=== PATIENT | female | born 1955 | race Asian ===

== ENCOUNTER 2018-08-20 08:26 | Emergency (ER) | payer MEDICARE, OTHER ==
[~2018-08-20] VITALS: Ht 157.5 cm; Wt 72.6 kg
[2018-08-20 08:53] VITALS: BP 145/81
[2018-08-20] MEDS ORDERED: DEXAMETHASONE SOD PHOS 10MG/1ML VIAL INJ IM ONE (09:45)
[2018-08-20] MEDS ORDERED: KETOROLAC TROMETH 60MG/2ML VIAL IM ONE (09:45)
[2018-08-20] MEDS ORDERED: ACETAMINOPHEN/CODEINE#3 (300/30mg) TAB PO ONE (10:30)
[2018-08-20] MEDS ORDERED: ONDANSETRON ODT 4 MG TAB PO ONE (10:30)
== END 2018-08-20 10:34 | disposition home or self-care (01) ==
LOC: ER 08:26
DX: S62.101A Fracture of unspecified carpal bone, right wrist, initial encounter for closed fracture (principal); S22.32XA Fracture of one rib, left side, initial encounter for closed fracture; S20.212A Contusion of left front wall of thorax, initial encounter; V43.62XA Car passenger injured in collision with other type car in traffic accident, initial encounter; Y93.89 Activity, other specified; Y99.8 Other external cause status; Y92.89 Other specified places as the place of occurrence of the external cause
CPT/HCPCS: 29125; 71046; 73110; 99283; Q0162